=== PATIENT | male | born 1940 | race Caucasian/White ===

== ENCOUNTER → 2018-04-06 | Outpatient (CLI) | payer MEDICARE, OTHER ==
[~2018-04-06] MED LIST: ADULT LOW DOSE81 MG; BRIMONIDINE TAR15 M1; COREG; DORZOLAMIDE HCL10 M1; FISHOIL; GLUCOPHAGE1000 MG; IBUPROFEN 800800 M1; KEFLEX500 MG PO; LISINOPRIL2.5 MG PO; LORTAB 5 MG/5001 TA1 PO; MULTIVITAMINS; NIASPAN PO; TRAVAPROST
== END ==
LOC: M.CT 13:00
DX: R51 Headache (principal); W19.XXXA Unspecified fall, initial encounter